=== PATIENT | male | born 1970 | race Caucasian/White ===

== ENCOUNTER 2017-09-15 08:55 | Emergency (ER) | payer SELFPAY ==
[2017-09-15 09:30] LABS: Basophils % (Auto) 0.9 % (0.0-1.8); Eosinophils % (Auto) 0.6 % (0.0-4.3); Hematocrit 52.6 % (35.5-45.6); Hemoglobin 17.8 gm/dl (11.8-15.2); Mean Corpuscular HGB Conc 34 % (32-34); Mean Corpuscular Hemoglobin 31 pg (28-32); Mean Corpuscular Volume 91 fl (84-94); Platelet Count 205 K/mm3 (140-440); Red Blood Count 5.76 M/mm3 (3.65-5.03); Red Cell Distribution Width 13.5 % (13.2-15.2); White Blood Count 9.4 K/mm3 (4.5-11.0)
[2017-09-15 09:46] LABS: BUN/Creatinine Ratio 19; Blood Urea Nitrogen 13 mg/dL (9-20); Calcium 9.8 mg/dL (8.4-10.2); Carbon Dioxide 22 mmol/L (22-30); Chloride 98.9 mmol/L (98-107); Glucose 114 mg/dL (75-100); Sodium 139 mmol/L (137-145)
[2017-09-15 09:59] LABS: Anion Gap 23 mmol/L; Potassium 5.3 mmol/L (3.6-5.0)
[2017-09-15 10:30] LABS: BUN/Creatinine Ratio 19; Blood Urea Nitrogen 13 mg/dL (9-20); Carbon Dioxide 22 mmol/L (22-30)
[2017-09-15 10:31] LABS: Anion Gap 20 mmol/L; Calcium 9.6 mg/dL (8.4-10.2); Chloride 100.6 mmol/L (98-107); Glucose 97 mg/dL (75-100); Potassium 4.5 mmol/L (3.6-5.0); Sodium 138 mmol/L (137-145)
[2017-09-15] MEDS ORDERED: BABY ASPIRIN PO ONE (10:57)
[2017-09-15] MEDS ORDERED: MORPHINE IV ONE (10:58)
--- NOTE | 2017-09-15 12:22 | Emergency Department Report ---
ED General Adult HPI - General Chief complaint: Chest Pain Stated complaint: CHEST PAIN Time Seen by Provider: 09/15/17 10:57 Source: patient Mode of arrival: Ambulatory Limitations: No Limitations - History of Present Illness Initial comments: She is a 47-year-old male past medical history of CABG and coronary artery arteries disease who presents with chest pain has been going on for last couple of hours. Patient states that the chest pain is a 6 out of 10 so came less side of his heart and it feels like someone is pulling on his chest. He says it feels different than his prior heart attacks. She states that he still in a pulling type of pain nothing makes it better or worse. Patient states that he has some lightheadedness patient denies having any nausea or vomiting. Patient states that he hasn't taken any of his aspirin today. Patient is from [place] and he states that he recently moved to [place] so he has no establish care in the area and he hasn't taken his medications in the last 2 weeks. Severity scale (0 -10): 9 - Related Data Home Medications Medication Instructions Recorded Confirmed Last Taken AtorvaSTATin 40 mg PO HS 09/15/17 09/15/17 Unknown Carvedilol 3.125 mg PO BID 09/15/17 09/15/17 Unknown Lisinopril 10 mg PO DAILY 09/15/17 09/15/17 Unknown Nitrostat 0.4 mg PO DAILY PRN 09/15/17 09/15/17 Unknown Plavix 75 mg PO DAILY 09/15/17 09/15/17 Unknown Allergies Allergy/AdvReac Type Severity Reaction Status Date / Time No Known Allergies Allergy Verified 09/15/17 12:00 ED Review of Systems ROS: Stated complaint: CHEST PAIN Other details as noted in HPI Constitutional: denies: chills, fever Eyes: denies: eye pain, eye discharge, vision change ENT: denies: ear pain, throat pain Respiratory: denies: cough, shortness of breath, wheezing Cardiovascular: chest pain. denies: palpitations Endocrine: no symptoms reported Gastrointestinal: denies: abdominal pain, nausea, diarrhea Genitourinary: denies: urgency, dysuria Musculoskeletal: denies: back pain, joint swelling, arthralgia Skin: denies: rash, lesions Neurological: denies: headache, weakness, paresthesias Psychiatric: denies: anxiety, depression Hematological/Lymphatic: denies: easy bleeding, easy bruising ED Past Medical Hx - Past Medical History Previous Medical History?: Yes Hx Hypertension: Yes Additional medical history: chol - Surgical History Past Surgical History?: Yes Hx Coronary Stent: Yes Hx Open Heart Surgery: Yes - Social History Smoking Status: Current Every Day Smoker Substance Use Type: None - Medications Home Medications: Home Medications Medication Instructions Recorded Confirmed Last Taken Type AtorvaSTATin 40 mg PO HS 09/15/17 09/15/17 Unknown History Carvedilol 3.125 mg PO BID 09/15/17 09/15/17 Unknown History Lisinopril 10 mg PO DAILY 09/15/17 09/15/17 Unknown History Nitrostat 0.4 mg PO DAILY PRN 09/15/17 09/15/17 Unknown History Plavix 75 mg PO DAILY 09/15/17 09/15/17 Unknown History ED Physical Exam - General Limitations: No Limitations General appearance: alert, in no apparent distress - Head Head exam: Present: atraumatic, normocephalic - Eye Eye exam: Present: normal appearance - ENT ENT exam: Present: mucous membranes moist - Neck Neck exam: Present: normal inspection - Respiratory Respiratory exam: Present: normal lung sounds bilaterally. Absent: respiratory distress - Cardiovascular Cardiovascular Exam: Present: regular rate, normal rhythm. Absent: systolic murmur, diastolic murmur, rubs, gallop - GI/Abdominal GI/Abdominal exam: Present: soft, normal bowel sounds - Rectal Rectal exam: Present: deferred - Extremities Exam Extremities exam: Present: normal inspection - Back Exam Back exam: Present: normal inspection - Neurological Exam Neurological exam: Present: alert, oriented X3 - Psychiatric Psychiatric exam: Present: normal affect, normal mood - Skin Skin exam: Present: warm, dry, intact, normal color. Absent: rash ED Course Vital Signs 09/15/17 09/15/17 09/15/17 09:07 11:15 13:20 Temperature 98 F Pulse Rate 76 77 Respiratory 18 27 H Rate Blood Pressure 150/106 152/107 O2 Sat by Pulse 97 Oximetry ED Medical Decision Making - Lab Data Result diagrams: 09/15/17 09:15 09/15/17 10:03 Lab Results 09/15/17 09/15/17 09/15/17 Range/Units 09:15 09:15 10:03 WBC 9.4 (4.5-11.0) K/mm3 RBC 5.76 H (3.65-5.03) M/mm3 Hgb 17.8 H (11.8-15.2) gm/dl Hct 52.6 H (35.5-45.6) % MCV 91 (84-94) fl MCH 31 (28-32) pg MCHC 34 (32-34) % RDW 13.5 (13.2-15.2) % Plt Count 205 (140-440) K/mm3 Lymph % (Auto) 21.5 (13.4-35.0) % Rankin % (Auto) 9.0 H (0.0-7.3) % Eos % (Auto) 0.6 (0.0-4.3) % Baso % (Auto) 0.9 (0.0-1.8) % Lymph # 2.0 (1.2-5.4) K/mm3 Rankin # 0.9 H (0.0-0.8) K/mm3 Eos # 0.1 (0.0-0.4) K/mm3 Baso # 0.1 (0.0-0.1) K/mm3 Seg Neutrophils % 68.0 (40.0-70.0) % Seg Neutrophils # 6.4 (1.8-7.7) K/mm3 Sodium 139 138 (137-145) mmol/L Potassium 5.3 H 4.5 (3.6-5.0) mmol/L Chloride 98.9 100.6 (98-107) mmol/L Carbon Dioxide 22 22 (22-30) mmol/L Anion Gap 23 20 mmol/L BUN 13 13 (9-20) mg/dL Creatinine 0.7 L 0.7 L (0.8-1.5) mg/dL Estimated GFR > 60 > 60 ml/min BUN/Creatinine Ratio 19 19 % Glucose 114 H 97 (75-100) mg/dL Calcium 9.8 9.6 (8.4-10.2) mg/dL Troponin T < 0.010 (0.00-0.029) ng/mL NT-Pro-B Natriuret Pep (0-450) pg/mL 09/15/ Range/Units 10:03 WBC (4.5-11.0) K/mm3 RBC (3.65-5.03) M/mm3 Hgb (11.8-15.2) gm/dl Hct (35.5-45.6) % MCV (84-94) fl MCH (28-32) pg MCHC (32-34) % RDW (13.2-15.2) % Plt Count (140-440) K/mm3 Lymph % (Auto) (13.4-35.0) % Rankin % (Auto) (0.0-7.3) % Eos % (Auto) (0.0-4.3) % Baso % (Auto) (0.0-1.8) % Lymph # (1.2-5.4) K/mm3 Rankin # (0.0-0.8) K/mm3 Eos # (0.0-0.4) K/mm3 Baso # (0.0-0.1) K/mm3 Seg Neutrophils % (40.0-70.0) % Seg Neutrophils # (1.8-7.7) K/mm3 Sodium (137-145) mmol/L Potassium (3.6-5.0) mmol/L Chloride (98-107) mmol/L Carbon Dioxide (22-30) mmol/L Anion Gap mmol/L BUN (9-20) mg/dL Creatinine (0.8-1.5) mg/dL Estimated GFR ml/min BUN/Creatinine Ratio % Glucose (75-100) mg/dL Calcium (8.4-10.2) mg/dL Troponin T (0.00-0.029) ng/mL NT-Pro-B Natriuret Pep 45.86 (0-450) pg/mL - EKG Data -: EKG Interpreted by Ok - EKG Data 09/15/17 12:22 KG shows normal sinus rhythm Q waves in the inferior leads no ST segment elevation or T-wave inversion. - Radiology Data Radiology results: report reviewed, image reviewed Chest x-ray: shows no acute cardiopulmonary disease shows sternotomy wires - Medical Decision Making Medical diagnosis: Non-STEMI Differential medical diagnosis: Pneumothorax, GERD, hypokalemia, hyperkalemia CBC, CMP, troponin, EKG, chest x-ray, 324 mg of aspirin, IV pain medication and I will admit patient Due to patient's cardiac risk factors and prior CABG and multiple heart attacks he will need to be admitted to the hospital service for ACS rule out. Patient will also need medication reconciliation as he has no medications and no establish care in the area as he recently just moved here. Discussed plan with patient patient agrees plan: The patient to the hospital service. Critical care attestation.: If time is entered above; I have spent that time in minutes in the direct care of this critically ill patient, excluding procedure time. ED Disposition Clinical Impression: Unstable angina CAD (coronary artery disease) Qualifiers: Coronary Disease-Associated Artery/Lesion type: unspecified vessel or lesion type [place] vs. transplanted heart: [place] heart Associated angina: with stable angina Qualified Code(s): I25.118 - Atherosclerotic heart disease of [place] coronary artery with other forms of angina pectoris Chest pain Qualifiers: Chest pain type: unspecified Qualified Code(s): R07.9 - Chest pain, unspecified Disposition: DC-09 OP ADMIT IP TO THIS HOSP Is pt being admited?: Yes Does the pt Need Aspirin: No Condition: Stable Instructions: Chest Pain (ED), Angina (ED) Referrals: PRIMARY CARE, [Primary Care Provider] - 3-5 Days
[2017-09-15] MEDS ORDERED: NITROSTAT SL PRN (13:16)
--- NOTE | 2017-09-15 14:00 | XRay Report ---
Portable chest: Chest pain. There are sternotomy wires. The heart is normal in size and there is no vascular congestion. The lungs are clear. No prior study for comparison. Impression: No acute finding.
[2017-09-15] MEDS ORDERED: COREG PO ONE (14:43)
[2017-09-15] MEDS ORDERED: PLAVIX PO ONE (14:43)
[2017-09-15] MEDS ORDERED: ZESTRIL PO ONE (14:43)
--- NOTE | 2017-09-15 14:49 | History and Physical Report ---
History of Present Illness Chief complaint: I ran out of my medication 2 weeks ago History of present illness: 47 YO Male with Nicotine Dependence, CAD S/P Stent placement, and S/P CABG, HTN , HLD presents to ED for evaluation. Pt initially complained of chest pain, but upon further questioning, patient states denies chest pain. Pt states that he ran out of his medication 2 weeks ago and knows that his blood pressure is high. Pt resting comfortably in bed, denies pain. Pt denies fever, chills, CP, Palpitations, NVD, Syncope, leg swelling, calf pain, prolonged immobility/travel , individual/family history of DVT/PE, dypsnea, shortness of breath, productive cough, hemoptysis, or recent ill contacts. Pt seen and evaluated in ED, serial cardiac enzymes, ekg, and telemetry monitoring were unremarkable for evidence of ischemia. D dimer was normal. Pt restarted on home medication. Pt counseled regarding smoking cessation, and medication compliance. Pt acknowledges understanding instructions. Past History Past Medical History: CAD, hypertension, hyperlipidemia Past Surgical History: CABG Social history: single, smoking. denies: alcohol abuse, prescription drug abuse Family history: hypertension Medications and Allergies Allergies Allergy/AdvReac Type Severity Reaction Status Date / Time No Known Allergies Allergy Verified 09/15/17 12:00 Home Medications Medication Instructions Recorded Confirmed Last Taken Type AtorvaSTATin 40 mg PO HS 09/15/17 09/15/17 Unknown History AtorvaSTATin [Lipitor] 40 mg PO QHS #30 tab 09/15/17 Unknown Rx Carvedilol 3.125 mg PO BID 09/15/17 09/15/17 Unknown History Carvedilol [Coreg] 3.125 mg PO BID #60 tablet 09/15/17 Unknown Rx Clopidogrel Bisulfate [Plavix] 75 mg PO DAILY #30 tablet 09/15/17 Unknown Rx Lisinopril 10 mg PO DAILY 09/15/17 09/15/17 Unknown History Lisinopril [Prinivil] 10 mg PO DAILY #30 tablet 09/15/17 Unknown Rx Nitroglycerin [Nitrostat] 0.4 mg SL Q5M PRN #5 tab 09/15/17 Unknown Rx Nitrostat 0.4 mg PO DAILY PRN 09/15/17 09/15/17 Unknown History Plavix 75 mg PO DAILY 09/15/17 09/15/17 Unknown History Active Meds: Active Medications Atorvastatin Calcium (Lipitor) 40 mg PO QHS CYNDI Nitroglycerin (Nitrostat) 0.4 mg SL .Q5MIN PRN PRN Reason: Chest Pain Last Admin: 09/15/17 13:20 Dose: 0.4 mg Review of Systems Constitutional: other (I ran out of my medication), no weight loss, no weight gain, no fever, no chills, no sweats Ears, nose, mouth and throat: no ear pain, no ear discharge, no tinnitis Cardiovascular: high blood pressure, no chest pain, no orthopnea, no palpitations, no edema, no syncope, no lightheadedness, no shortness of breath, no dyspnea on exertion, no paroxysmal nocturnal dyspnea, no claudication, no phlebitis, no leg edema, no decreased exercise tolerance Respiratory: no cough with sputum, no excessive sputum, no hemoptysis, no shortness of breath Gastrointestinal: no nausea, no vomiting, no diarrhea, no constipation, no change in bowel habits Genitourinary Male: no dysuria, no hematuria, no flank pain, no discharge, no urinary frequency, no urinary hesitancy Rectal: no pain, no incontinence, no bleeding Musculoskeletal: no neck stiffness, no neck pain, no shooting arm pain, no arm numbness/tingling, no low back pain, no shooting leg pain Integumentary: no rash, no pruritis, no redness, no sores, no wounds, no jaundice Neurological: no head injury, no transient paralysis, no paralysis, no weakness , no parathesias, no numbness, no tingling Psychiatric: no anxiety, no memory loss, no change in sleep habits, no sleep disturbances, no insomnia, no hypersomnia, no change in appetite Endocrine: no cold intolerance, no heat intolerance, no polyphagia, no excessive thirst, no polydipsia, no polyuria, no nocturia Hematologic/Lymphatic: no easy bruising, no easy bleeding Allergic/Immunologic: no urticaria, no allergic rhinitis, no wheezing Exam - Constitutional Vitals: Temp Pulse Resp BP Pulse Ox 98 F 78 16 157/96 96 09/15/17 09:07 09/15/17 14:35 09/15/17 14:35 09/15/17 14:35 09/15/17 14:35 General appearance: Present: no acute distress, well-nourished - EENT Eyes: Present: PERRL ENT: hearing intact, clear oral mucosa - Neck Neck: Present: supple, normal ROM - Respiratory Respiratory effort: normal Respiratory: bilateral: CTA - Cardiovascular Heart Sounds: Present: S1 & S2. Absent: rub, click - Extremities Extremities: pulses symmetrical, No edema Peripheral Pulses: within normal limits - Abdominal General gastrointestinal: Present: soft, non-tender, non-distended, normal bowel sounds Male genitourinary: Present: normal - Integumentary Integumentary: Present: clear, warm, dry - Musculoskeletal Musculoskeletal: gait normal, strength equal bilaterally - Psychiatric Psychiatric: appropriate mood/affect, intact judgment & insight - Neurologic Neurologic: CNII-XII intact, moves all extremities Results - Labs CBC & Chem 7: 09/15/17 09:15 09/15/17 10:03 Labs: Abnormal lab results 09/15/17 09/15/17 09/15/17 Range/Units 09:15 09:15 10:03 RBC 5.76 H (3.65-5.03) M/mm3 Hgb 17.8 H (11.8-15.2) gm/dl Hct 52.6 H (35.5-45.6) % Rich % (Auto) 9.0 H (0.0-7.3) % Rich # 0.9 H (0.0-0.8) K/mm3 Potassium 5.3 H (3.6-5.0) mmol/L Creatinine 0.7 L 0.7 L (0.8-1.5) mg/dL Glucose 114 H (75-100) mg/dL Assessment and Plan - Patient Problems (1) HTN (hypertension) Current Visit: Yes Status: Acute Plan to address problem: Restart Coreg, and lisinopril, Pt instructed to f/u pcp 1wk, cardiology prn for f/u care and further testing. Pt to maintain BP log 3x daily, and present to PCP at time of appointment. (2) Noncompliance with medication regimen Current Visit: Yes Status: Acute Plan to address problem: Pt counseled. (3) CAD (coronary artery disease) Current Visit: Yes Status: Acute Qualifiers: Coronary Disease-Associated Artery/Lesion type: bypass graft, autologous vein Associated angina: without angina Qualified Code(s): I25.810 - Atherosclerosis of coronary artery bypass graft(s) without angina pectoris Plan to address problem: Pt instructed to continue antiplatelet therapy, statin therapy
[2017-09-15 15:53] VITALS: BP 155/100
== END 2017-09-15 15:54 | disposition admitted as inpatient to this hospital (09) ==
LOC: ED 08:55
DX: I25.118 Atherosclerotic heart disease of native coronary artery with other forms of angina pectoris (principal); R07.9 Chest pain, unspecified; F17.200 Nicotine dependence, unspecified, uncomplicated; I10 Essential (primary) hypertension; Z95.818 Presence of other cardiac implants and grafts
CPT/HCPCS: 36415; 71010; 80048; 83880; 84484; 85025; 85379; 93005; 93010; 96374; 99284; J2270; A9270-GY

== ENCOUNTER 2017-12-23 13:03 | Emergency (ER) | payer SELFPAY | END 2017-12-23 13:05 | disposition left against medical advice (07) | LOC: ED 13:03 | DX: R07.9 Chest pain, unspecified (principal); Z53.21 Procedure and treatment not carried out due to patient leaving prior to being seen by health care provider ==